=== PATIENT | male | born 1955 | race Caucasian/White ===

== ENCOUNTER 2019-11-26 08:19 | Emergency (ER) | payer BC, SELFPAY ==
[2019-11-26 08:29] VITALS: BP 163/118; PULSE 81; RESP 16; TEMP 36.4; O2SAT 96
--- NOTE | 2019-11-26 08:38 | CTR_ITS ---
PROCEDURE INFORMATION: Exam: CT Angiography Head With Contrast Exam date and time: 11/26/2019 9:12 AM Age: 64 years old Clinical indication: Double vision in right eye; Dizzy. TECHNIQUE: Imaging protocol: Computed tomography angiography of the head with intravenous contrast. 3D rendering: MIP and/or 3D reconstructed images were created by the technologist. Radiation optimization: All CT scans at this facility use at least one of these dose optimization techniques: automated exposure control; mA and/or kV adjustment per patient size (includes targeted exams where dose is matched to clinical indication); or iterative reconstruction. Contrast material: OMNI 350; Contrast volume: 95 ml; Contrast route: LT AC; COMPARISON: CT HEAD 11/26/2019 9:13 AM RADIATION DOSE METRICS: Total DLP: 3004.36 mGy-cm FINDINGS: Anterior cerebral arteries: No occlusion or significant stenosis. No aneurysm. Right internal carotid artery: Intracranial segment is patent with no significant stenosis or occlusion. No aneurysm. The ophthalmic artery is patent. Right middle cerebral artery: No occlusion or significant stenosis. No aneurysm. Right posterior cerebral artery: Small caliber P1 segment. No occlusion or significant stenosis otherwise. Large caliber patent posterior communicating artery. No aneurysm. Right vertebral artery: No occlusion or significant stenosis. No aneurysm. Left internal carotid artery: Intracranial segment is patent with no significant stenosis or occlusion. No aneurysm. The ophthalmic artery is patent. Left middle cerebral artery: No occlusion or significant stenosis. No aneurysm. Left posterior cerebral artery: Small caliber P1 segment. No occlusion or significant stenosis otherwise. Large caliber patent posterior communicating artery. No aneurysm. Left vertebral artery: No occlusion or significant stenosis. No aneurysm. Basilar artery: No occlusion or significant stenosis. No aneurysm. IMPRESSION: No large vessel stenosis or occlusion. PROCEDURE INFORMATION: Exam: CT Angiography Neck With Contrast Exam date and time: 11/26/2019 9:12 AM Age: 64 years old Clinical indication: Double vision in right eye; Dizzy. TECHNIQUE: Imaging protocol: Computed tomography angiography of the neck with intravenous contrast. 3D rendering: MIP and/or 3D reconstructed images were created by the technologist. Radiation optimization: All CT scans at this facility use at least one of these dose optimization techniques: automated exposure control; mA and/or kV adjustment per patient size (includes targeted exams where dose is matched to clinical indication); or iterative reconstruction. Contrast material: OMNI 350; Contrast volume: 95 ml; Contrast route: LT AC; COMPARISON: No relevant prior studies available. RADIATION DOSE METRICS: Total DLP: 3004.36 mGy-cm FINDINGS: Right common carotid artery: No stenosis. No dissection or occlusion. Right internal carotid artery: No stenosis of the extracranial segment. No dissection or occlusion. Right external carotid artery: No occlusion or stenosis of the origin. Right vertebral artery: No stenosis. No dissection or occlusion. Left common carotid artery: No stenosis. No dissection or occlusion. Left internal carotid artery: No stenosis of the extracranial segment. No dissection or occlusion. Left external carotid artery: No occlusion or stenosis of the origin. Left vertebral artery: No stenosis. No dissection or occlusion. Bones/joints: Mild multilevel degenerative changes in the cervical spine. Soft tissues: No acute soft tissue abnormality. Lungs: Bilateral centrilobular and paraseptal emphysema. There is an azygos fissure, an anatomic variant. CT/CT angio headneck* [id number] IMPRESSION: No stenosis, occlusion or dissection. REFERENCES: NASCET CRITERIA. The degree of internal carotid artery stenosis is based on NASCET criteria. Normal is no stenosis. Mild is less than 50% stenosis. Moderate is 50-69% stenosis. Severe is 70% to 99% stenosis. Total occlusion is no detectable patent lumen. Radiation Dose CTDIVOL = (mGy): DLP = 3004.36~3004.36 (mGy-cm)
--- NOTE | 2019-11-26 08:38 | CTR_ITS ---
PROCEDURE INFORMATION: Exam: CT Head Without Contrast Exam date and time: 11/26/2019 9:20 AM Age: 64 years old Clinical indication: Double vision in right eye; Dizzy. TECHNIQUE: Imaging protocol: Computed tomography of the head without contrast. Radiation optimization: All CT scans at this facility use at least one of these dose optimization techniques: automated exposure control; mA and/or kV adjustment per patient size (includes targeted exams where dose is matched to clinical indication); or iterative reconstruction. COMPARISON: No relevant prior studies available. RADIATION DOSE METRICS: Total DLP: 854.58 mGy-cm FINDINGS: Brain: No acute brain parenchymal abnormality. No intracranial hemorrhage. No extraaxial fluid collections. Ventricles: No hydrocephalus. Bones/joints: No calvarial fracture. Sinuses: There is multifocal mucoperiosteal thickening, but no fluid in the visualized paranasal sinuses. Mastoid air cells: The visualized mastoid air cells are aerated. Soft tissues: No acute soft tissue abnormality. CT/CT head wo con* [id number] IMPRESSION: No acute intracranial abnormality. Radiation Dose CTDIVOL = (mGy): DLP = 854.58 (mGy-cm)
--- NOTE | 2019-11-26 08:45 | ED_ITS ---
HPI - General Adult General: Chief complaint: Eye Problems Stated complaint: DIZZY VISION PROBLEMS Time Seen by Provider: 11/26/19 08:31 History of Present Illness: HPI narrative: Patient states that yesterday he was bent over a sink or counter and had sudden onset of severe blurry vision and dizziness. Symptoms have continued until this time. Onset (ago): day(s) (1) Location: head and eyes Severity: severe Relieving factors: none Exacerbating factors: none Associated symptoms: Reports nausea Treatments prior to arrival: none Review of Systems General: Reports: 10 or more systems reviewed and unremarkable except in HPI and below GI: Reports: nausea PFSH ED PFSH: Social History Smoking and tobacco status: current every day smoker Physical Exam Const: COMMON NORMALS: patient oriented x3 and alert HENMT: COMMON NORMALS: normocephalic, atraumatic, external ears normal and Normal external nose present HEAD & SCALP: normocephalic and atraumatic FACE & SINUS: normal facial exam NOSE: Normal external nose present EXTERNAL EAR: Yes external ears normal MOUTH: Normal oral and palatal mucosa present Neck/C-Spine: COMMON NORMALS: full ROM, no lymphadenopathy, no meningeal signs, no JVD and No carotid bruits Resp: COMMON NORMALS: normal respiratory effort, No retractions, No use of accessory muscles and clear to auscultation bilaterally AUSCULTATION: clear to auscultation bilaterally Cardio: COMMON NORMALS: no JVD, regular rate and regular rhythm RATE: regular rate RHYTHM: regular rhythm GI: COMMON NORMALS: Normal to inspection, nondistended, normoactive bowel sounds present, Soft to palpation, non-tender, No hepatosplenomegaly present, no masses and no bruits PALPATION: Yes Soft to palpation and Yes No hepatosplenomegaly present Extremity: COMMON NORMALS: normal to inspection, full ROM, capillary refill normal, no joint enlargement, no clubbing, cyanosis or edema, no calf tenderness and no pedal edema Neuro: COMMON NORMALS: patient oriented x3, moves all extremities, no focal motor deficits and no sensory deficits noted SENSORIUM/ORIENTATION: Yes alert MENINGEAL SIGNS: Yes no meningeal signs COORDINATION/BALANCE: [id number] test normal and fheo-gs-jyiz test normal GAIT: Yes Unable to assess gait COORDINATION: lqfbct-of-podi test normal and amkj-mz-pdnc test normal Psych: COMMON NORMALS: mental status grossly normal, Normal thought process present, cooperative, normal affect, speech normal and activity/motor behavior normal SPEECH: Yes normal speech THOUGHT PROCESS: Normal thought process present Skin: COMMON NORMALS: no rashes or lesions noted, turgor normal, no jaundice and no mottling GENERAL SKIN EXAM: no rashes or lesions noted and turgor normal Course Vital Signs: Vital signs: Vital Signs Temperature 97.6 F 11/26/19 08:29 Pulse Rate 81 11/26/19 08:29 Respiratory Rate 16 11/26/19 08:29 Blood Pressure 163/118 11/26/19 08:29 Pulse Oximetry 96 11/26/19 08:29 [facility] - General Adult Lab Data: Labs: Lab Results 11/26/19 11/26/19 11/26/19 Range/Units 08:48 08:48 08:48 WBC 10.2 H (4.0-10.0) 10^3/ uL RBC 4.83 (4.1-5.3) 10^6/u L Hgb 15.1 (11.7-16.6) g/dL Hct 46.0 (42.0-52.0) % MCV 95.2 H (80-94) fL MCH 31.3 (28.0-34.0) pg MCHC 32.8 (30.0-36.0) g/dL RDW 13.0 (12.1-15.1) % Plt Count 245 (130-400) 10^3/c mm MPV 9.5 (7.4-10.4) fL Neut % (Auto) 76.3 % Lymph % (Auto) 16.1 % Russell % (Auto) 5.5 % Eos % (Auto) 1.4 % Baso % (Auto) 0.4 % Neut # (Auto) 7.8 H (1.8-7.7) 10^3/u L Lymph # (Auto) 1.7 (0.8-4.8) 10^3/u L Russell # (Auto) 0.6 (0.2-0.9) 10^3/u L Eos # (Auto) 0.1 (0.0-0.8) 10^3/u L Baso # (Auto) 0.0 (0.0-0.1) 10^3/u L Nucleated RBC % (a uto) 0 % Nucleated RBCs # 0.0 /100WBC D-Dimer 1.14 H (0-0.59) ug/mIFE U Sodium 138 (136-145) mmol/L Potassium 4.4 (3.5-5.1) mmol/L Chloride 105 (98-107) mmol/L Carbon Dioxide 25 (22-29) mmol/L Anion Gap 12.4 (5-19) BUN 13 (8-23) mg/dL Creatinine 0.8 (0.7-1.2) mg/dL GFR Calculation 97.0 (90-130) mL/min Glucose 113 (65-115) mg/dL Calculated Osmolal ity 283 L (285-295) mOsm/k g Calcium 9.5 (8.5-10.5) mg/dL Total Bilirubin 0.4 (0.15-1.2) mg/dL AST 14 (0-40) U/L ALT 9 (0-41) U/L Alkaline Phosphata se 51 (40-130) IU/L Total Protein 7.3 (6.6-8.7) g/dL Albumin 4.1 (3.5-5.2) g/dL Globulin 3.2 (1.3-4.6) g/dL Discharge Plan Discharge Patient Disposition: Home, Self-Care Clinical Impression: Binocular vision disorder with diplopia Condition: Stable Prescriptions: No Action No Known Home Medications RF: 0 Discharge Orders: Discharge Order (Routine); Ordered 11/26/19 Ordered By: Kaleb Tan Referrals: Earnest Manuel MD [Physician] - 1-3 days Coding Level of Care Code ED Braille Duplicating Machine Operator for Chg Fwd Exam Comprehensive
[2019-11-26 08:55] LABS: Basophils % 0.4 %; Eosinophils # 0.1 10^3/uL (0.0-0.8); Eosinophils % 1.4 %; Hemoglobin 15.1 g/dL (11.7-16.6); Lymphocytes # 1.7 10^3/uL (0.8-4.8); Lymphocytes % 16.1 %; Mean Corpuscular HGB Conc 32.8 g/dL (30.0-36.0); Mean Corpuscular Hemoglobin 31.3 pg (28.0-34.0); Mean Corpuscular Volume 95.2 fL (80-94); Mean Platelet Volume 9.5 fL (7.4-10.4); Monocytes # 0.6 10^3/uL (0.2-0.9); Monocytes % 5.5 %; Neutrophils # 7.8 10^3/uL (1.8-7.7); Neutrophils % 76.3 %; Nucleated Red Blood Cells % 0 %; Platelet Count 245 10^3/cmm (130-400); Red Blood Count 4.83 10^6/uL (4.1-5.3); White Blood Count 10.2 10^3/uL (4.0-10.0)
[2019-11-26 09:05] LABS: D Dimer 1.14 ug/mIFEU (0-0.59)
[2019-11-26 09:11] LABS: Alanine Aminotransferase 9 U/L (0-41); Albumin Level 4.1 g/dL (3.5-5.2); Alkaline Phosphatase 51 IU/L (40-130); Anion Gap 12.4 (5-19); Aspartate Amino Transferase 14 U/L (0-40); Blood Urea Nitrogen 13 mg/dL (8-23); Calcium 9.5 mg/dL (8.5-10.5); Carbon Dioxide 25 mmol/L (22-29); Chloride 105 mmol/L (98-107); Globulin 3.2 g/dL (1.3-4.6); Glucose 113 mg/dL (65-115); Osmolality Calculated 283 mOsm/kg (285-295); Potassium 4.4 mmol/L (3.5-5.1); Sodium 138 mmol/L (136-145); Total Bilirubin 0.4 mg/dL (0.15-1.2); Total Protein 7.3 g/dL (6.6-8.7)
[2019-11-26] MEDS: iohexol 350 mg/mL 100 mL Btl 95 ML IV (09:22)
[2019-11-26 10:55] VITALS: BP 149/93; PULSE 77; RESP 16; O2SAT 96
== END 2019-11-26 10:55 | disposition home or self-care (01) ==
PROVIDERS: Emergency Provider Family Medicine
DX: H53.2 Diplopia (principal); F17.210 Nicotine dependence, cigarettes, uncomplicated
CPT/HCPCS: 12345; 36415; 70450; 70496; 70498; 80053; 85025; 85378; 99281; 99283; Q9967

== ENCOUNTER 2024-02-20 12:29 | Emergency (ER) | payer MEDICARE, SELFPAY ==
[2024-02-20] VITALS (19 sets, daily range): BP systolic 152–223; BP diastolic 91–137; PULSE 69–108; RESP 8–22; TEMP 36.5; O2SAT 85–99; BMI 24.4
--- NOTE | 2024-02-20 13:01 | CTR_ITS ---
PROCEDURE INFORMATION: Exam: CT Abdomen And Pelvis Without Contrast Exam date and time: 02/20/2024 1:13 PM Age: 68 years old Clinical indication: Abdominal pain; Flank; Left; Additional info: L flank pain TECHNIQUE: Imaging protocol: Computed tomography of the abdomen and pelvis without contrast. Radiation optimization: All CT scans at this facility use at least one of these dose optimization techniques: automated exposure control; mA and/or kV adjustment per patient size (includes targeted exams where dose is matched to clinical indication); or iterative reconstruction. COMPARISON: No relevant prior studies available. RADIATION DOSE METRICS: Total DLP (mGy-cm): 502.37 FINDINGS: Lungs: Lung bases are clear. No pleural effusion. Liver: Normal. No mass. Gallbladder and biliary ducts: Normal. No calcified stones. No ductal dilation. Pancreas: Normal. No ductal dilation. Spleen: Normal. No splenomegaly. Adrenal glands: Normal. No mass. Kidneys and ureters: A 3 cm cyst involves the right kidney. A 1.5 cm complex cyst or nodule arises from the superior pole of the left kidney. A 1 cm hemorrhagic cyst involving the midpole region of the left kidney. Stomach and bowel: Multiple diverticula involve the sigmoid colon. There is no sign of diverticulitis. Appendix: No evidence of appendicitis. Intraperitoneal space: Unremarkable. No free air. No significant fluid collection. Vasculature: There is a 4.7 cm aneurysm involving the infrarenal abdominal aorta. Lymph nodes: Unremarkable. No enlarged lymph nodes. Urinary bladder: Unremarkable as visualized. Reproductive: The prostate gland is abnormally enlarged. Bones/joints: Unremarkable. No acute fracture. Soft tissues: Unremarkable. CT/CT kidney stone [id number] IMPRESSION: 1. 4.7 cm abdominal aortic aneurysm 2. Complex cyst or nodule left kidney with bilateral renal cysts. Further workup with ultrasound, MRI or contrasted CT needed. 3. Prostate enlargement 4. Sigmoid diverticulosis COMMENTS: Consistent with the [employer] [employer]'s Incidental Findings Committee white paper (J Am Addie Radiol 2018): Any incidental renal lesion less than 1 cm or classified as too small to characterize, or any incidental cystic renal lesion characterized as simple-appearing, is likely benign. No follow-up imaging is recommended for these lesions per consensus recommendations based on imaging criteria.
--- NOTE | 2024-02-20 13:02 | ED_ITS ---
HPI - Back Pain/Injury 2 General: Chief Complaint: Back Pain/Injury Stated Complaint: Lower back pain Time Seen by Provider: 02/20/24 12:52 Source: patient Mode of arrival: ambulatory Limitations: no limitations History of Present Illness: 68-year-old male states that he has left lower back pain that started suddenly at 130 states pain is very sharp in nature he has been diaphoretic he states that nothing makes the pain worse no pain with palpation denies any dysuria denies any vomiting diarrhea. Associated symptoms: Deny abdominal pain, chills, fever(s), nausea or vomiting Related Data Home Medications Medication Instructions Recorded Confirmed No Known Home Medications 11/26/19 11/26/19 Allergies Allergy/AdvReac Type Severity Reaction Status Date / Time No Known Allergies Allergy Unverified 11/26/19 08:55 Review of Systems 2 Const: Denies: fever(s), chills, body aches or change in appetite ENMT: Denies: throat pain or dental pain Card: Denies: chest pain Resp: Denies: dyspnea GI: Denies: abdominal pain, nausea, vomiting or diarrhea : Reports: flank pain Musc: Denies: neck pain or back pain Skin/Breast: Denies: rash Neuro: Denies: headache(s) PFSH ED 2 PFSH: Social History Smoking and tobacco/nicotine status: current every day tobacco/nicotine user Physical Exam 2 Const: COMMON NORMALS: patient oriented x3 HENMT: COMMON NORMALS: normocephalic and atraumatic HEAD & SCALP: n ormocephalic and atraumatic Eye: COMMON NORMALS: Equal, round and reactive pupils present and EOMs intact bilaterally PUPIL: Yes Equal, round and reactive pupils present Neck/C-Spine: COMMON NORMALS: full ROM and supple Chest: COMMONS NORMALS: normal inspection of the chest and normal palpation of entire chest wall Resp: COMMON NORMALS: normal respiratory effort, No retractions, No use of accessory muscles and clear to auscultation bilaterally AUSCULTATION: clear to auscultation bilaterally Cardio: COMMON NORMALS: regular rate, regular rhythm and No murmurs present (Cardio) RATE: regular rate RHYTHM: regular rhythm GI: COMMON NORMALS: Normal to inspection, nondistended, normoactive bowel sounds present, Soft to palpation, non-tender and no masses PALPATION: Yes Soft to palpation Extremity: COMMON NORMALS: normal to inspection and full ROM Neuro: COMMON NORMALS: patient oriented x3, moves all extremities and no focal motor deficits Psych: COMMON NORMALS: mental status grossly normal, Normal thought process present and cooperative THOUGHT PROCESS: Normal thought process present Skin: COMMON NORMALS: no rashes or lesions noted and no wounds GENERAL SKIN EXAM: no rashes or lesions noted Course 2 Vital Signs: Vital signs: Vital Signs Temperature 97.7 F 02/20/24 12:37 Pulse Rate 69 02/20/24 14:15 Respiratory Rate 10 L 02/20/24 14:15 Blood Pressure 166/100 02/20/24 14:15 Pulse Oximetry 98 02/20/24 14:15 Oxygen Delivery Me thod Room Air 02/20/24 12:37 MDM - Back Pain/Injury Medical Decision Making Patient presents for his back pain he has been diaphoretic and hypertensive CT his CTA shows inflammatory abdominal aortic aneurysm without rupture. I did speak to vascular emergency recommended transfer due to his symptoms did start him on esmolol drip gave him IV pushes of blood pressure medicine as well to his blood pressure down I spoke to the ER physician will transfer patient by air ER to ER. Medical Records I reviewed the patient's medical records. Labs I reviewed the patient's lab results. 02/20/24 13:32 02/20/24 13:32 Radiology Impressions Abdomen/Pelvis CT 02/20/24 13:01 IMPRESSION: 1. 4.7 cm abdominal aortic aneurysm 2. Complex cyst or nodule left kidney with bilateral renal cysts. Further workup with ultrasound, MRI or contrasted CT needed. 3. Prostate enlargement 4. Sigmoid diverticulosis COMMENTS: Consistent with the [place] [employer]'s Incidental Findings Committee white paper (J Am Addie Radiol 2018): Any incidental renal lesion less than 1 cm or classified as too small to characterize, or any incidental cystic renal lesion characterized as simple-appearing, is likely benign. No follow-up imaging is recommended for these lesions per consensus recommendations based on imaging criteria. 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 Laboratory Results WBC 11.88 10^3/uL (3.29-11.43) H 02/20/24 13:32 RBC 4.80 10^6/uL (3.85-5.65) 02/20/24 13:32 Hgb 15.50 g/dL (11.27-16.99) 02/20/24 13:32 Hct 46.1 % (37-53) 02/20/24 13:32 MCV 96.0 fl (82-101) 02/20/24 13:32 MCH 32.3 pg (27-33) 02/20/24 13:32 MCHC 33.6 g/dL (30-55) 02/20/24 13:32 RDW 13.0 % (12.1-15.1) 02/20/24 13:32 Plt Count 269 10^3/cmm (157-399) 02/20/24 13:32 MPV 9.6 fL (7.4-10.4) 02/20/24 13:32 Neut % (Auto) 82.9 % 02/20/24 13:32 Lymph % (Auto) 11.1 % 02/20/24 13:32 [place] % (Auto) 4.5 % 02/20/24 13:32 Eos % (Auto) 0.7 % 02/20/24 13:32 Baso % (Auto) 0.3 % 02/20/24 13:32 Neut # (Auto) 9.84 10^3/uL (1.8-7.7) H 02/20/24 13:32 Lymph # (Auto) 1.3 10^3/uL (0.8-4.8) 02/20/24 13:32 [place] # (Auto) 0.5 10^3/uL (0.2-0.9) 02/20/24 13:32 Eos # (Auto) 0.1 10^3/uL (0.0-0.8) 02/20/24 13:32 Baso # (Auto) 0.0 10^3/uL (0.0-0.1) 02/20/24 13:32 Nucleated RBC % (auto) 0 % 02/20/24 13:32 Nucleated RBCs # 0.0 /100WBC 02/20/24 13:32 Sodium 139 mmol/L (136-145) 02/20/24 13:32 Potassium 4.0 mmol/L (3.5-5.1) 02/20/24 13:32 Chloride 105 mmol/L (98-107) 02/20/24 13:32 Carbon Dioxide 23 mmol/L (22-29) 02/20/24 13:32 Anion Gap 15.0 (5-19) 02/20/24 13:32 BUN 15 mg/dL (8-23) 02/20/24 13:32 Creatinine 0.8 mg/dL (0.7-1.2) 02/20/24 13:32 GFR Calculation 95.8 mL/min (90-130) 02/20/24 13:32 Glucose 133 mg/dL (65-115) H 02/20/24 13:32 Calculated Osmolality 291 mOsm/kg (285-295) 02/20/24 13:32 Calcium 8.7 mg/dL (8.5-10.5) 02/20/24 13:32 Total Bilirubin 0.7 mg/dL (0.15-1.2) 02/20/24 13:32 AST 11 U/L (0-40) 02/20/24 13:32 ALT 10 U/L (0-41) 02/20/24 13:32 Alkaline Phosphatase 64 U/L (40-130) 02/20/24 13:32 Total Protein 7.0 g/dL (6.6-8.7) 02/20/24 13:32 Albumin 4.0 g/dL (3.5-5.2) 02/20/24 13:32 Globulin 3.0 g/dL (1.3-4.6) 02/20/24 13:32 Lipase 24 U/L (13-60) 02/20/24 13:32 All radiology interpretation(s) finalized by discharge Critical Care Time 2 Critical Care Time: Critical Care Time: Yes Total Critical Care Time: 45 Attestation: The high probability of a clinically significant, sudden or life threatening deterioration of the patient's vascular system(s) required my full and direct attention, intervention and personal management. The critical care time is as shown. This time is in addition to time spent performing any reported procedures but includes the following: [x] Data and vital sign review and interpretation [x] Patient assessment, examination and intervention [x] Documentation [x] Medication orders and management Discharge Plan Discharge Patient Disposition: Xfer Short-Term Hosp Clinical Impression: Abdominal aortic aneurysm Condition: Stable Prescriptions: No Action No Known Home Medications Coding Level of Care Code ED Painter Drum for Corazon Cota
--- NOTE | 2024-02-20 13:28 | CTR_ITS ---
PROCEDURE INFORMATION: Exam: CTA Abdomen and Pelvis With Contrast Exam date and time: 02/20/2024 1:34 PM Age: 68 years old Clinical indication: Abdominal pain; Low back. TECHNIQUE: Imaging protocol: Computed tomographic angiography of the abdomen and pelvis with contrast. Exam focused on the arteries. 3D rendering (Not supervised by radiologist): MIP and/or 3D reconstructed images were created by the technologist. Radiation optimization: All CT scans at this facility use at least one of these dose optimization techniques: automated exposure control; mA and/or kV adjustment per patient size (includes targeted exams where dose is matched to clinical indication); or iterative reconstruction. Contrast material: OMNI 350; Contrast volume: 100 ml; Contrast route: INTRAVENOUS (IV); COMPARISON: CT ABDOMEN/PELVIS WITHOUT 02/20/2024 1:13 PM RADIATION DOSE METRICS: Total DLP (mGy-cm): 550.4 FINDINGS: Aorta: There is a fusiform infrarenal abdominal aortic aneurysm with a diameter of approximately 4.6 cm. There appears to be a rind of inflammatory tissue around the aneurysm, sparing the posterior wall. No rupture. Celiac trunk and mesenteric arteries: The celiac axis is patent with a mild stenosis at the origin. The SMA is widely patent. The LISA is patent but is reconstituting from the arc of [place]. Renal arteries: The right renal artery is patent with a mild stenosis at the origin. The left renal artery is patent with no stenosis. Right iliac arteries: There is ectasia of the right common iliac artery with a diameter of approximately 1.7 cm. No internal iliac artery aneurysm. No stenosis or occlusion. Left iliac arteries: There is ectasia of the left common iliac artery with a diameter proximally 1.6 cm. No internal iliac artery aneurysm. No stenosis or occlusion. Liver: Multiple calcified granulomas in a nonenlarged liver. Gallbladder and biliary ducts: No calcified gallstones, gallbladder wall thickening, or pericholecystic inflammation. No biliary ductal dilation. Pancreas: No pancreatic mass. No peripancreatic inflammation. No pancreatic ductal dilation. Spleen: Multiple calcified granulomas in a nonenlarged spleen. Adrenal glands: No adrenal mass. Kidneys and ureters: No hydronephrosis. No nephrolithiasis. Dominant simple appearing 3 cm right renal cyst. There is a 1.5 cm simple cyst in the left kidney. There is a 1.0 cm exophytic low-attenuation lesion in the left kidney which may be due to complicated cyst. This lesion does not appear to enhance when compared to the prior noncontrast exam. Stomach and bowel: No bowel obstruction. There is diverticulosis, most prominently in the sigmoid colon and at the splenic flexure, without evidence of diverticulitis. Appendix: The appendix has a normal caliber. There is gas in the lumen. No periappendiceal inflammation. Intraperitoneal space: No ascites or pneumoperitoneum. Lymph nodes: No enlarged lymph nodes. Urinary bladder: No urinary bladder calculus or wall thickening. Reproductive: Prominent prostate. Bilateral vas deferens calcification which can be associated with diabetes mellitus. Bones/joints: Multilevel degenerative changes in the lumbar spine. Mild bilateral hip joint degeneration. Soft tissues: No acute soft tissue abnormality. 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
[2024-02-20] MEDS: iohexol 350 mg/mL 500 mL Btl (per mL) IV (13:40)
[2024-02-20 13:44] LABS: Basophils % 0.3 %; Eosinophils # 0.1 10^3/uL (0.0-0.8); Eosinophils % 0.7 %; Hematocrit 46.1 % (37-53); Lymphocytes # 1.3 10^3/uL (0.8-4.8); Lymphocytes % 11.1 %; Mean Corpuscular HGB Conc 33.6 g/dL (30-55); Mean Corpuscular Hemoglobin 32.3 pg (27-33); Mean Platelet Volume 9.6 fL (7.4-10.4); Monocytes # 0.5 10^3/uL (0.2-0.9); Monocytes % 4.5 %; Neutrophils # 9.84 10^3/uL (1.8-7.7); Neutrophils % 82.9 %; Nucleated Red Blood Cells % 0 %; Platelet Count 269 10^3/cmm (157-399); White Blood Count 11.88 10^3/uL (3.29-11.43)
[2024-02-20] MEDS: HYDROmorphone 1 mg/mL INJ 1 mL IVP (13:44)
[2024-02-20] MEDS: ondansetron 2 mg/ML SDV 2 mL 4 MG IVP (13:44)
[2024-02-20] MEDS: labetalol 5 mg/mL SDV 20mL 20 MG IVP (13:44)
[2024-02-20 14:02] LABS: Alanine Aminotransferase 10 U/L (0-41); Alkaline Phosphatase 64 U/L (40-130); Aspartate Amino Transferase 11 U/L (0-40); Blood Urea Nitrogen 15 mg/dL (8-23); Calcium 8.7 mg/dL (8.5-10.5); Carbon Dioxide 23 mmol/L (22-29); Chloride 105 mmol/L (98-107); Creatinine Clr Calc Pharmacy 100.4675; Glomerular Filtration Rate 95.8 mL/min (90-130); Glucose 133 mg/dL (65-115); Lipase 24 U/L (13-60); Osmolality Calculated 291 mOsm/kg (285-295); Sodium 139 mmol/L (136-145); Total Bilirubin 0.7 mg/dL (0.15-1.2)
--- NOTE | 2024-02-20 14:03 | ECG_ITS ---
[facility] Test Date: 2024-02-20 Pat Name: Jorge Grigsby Department: Room: Gender: Male Color Repairer: : 1955 Requested By: Winnie Morgan Order Number: [id number] Krystina MD: Scot Calles M.D. Measurements Intervals [place] Rate: 85 P: 0 SC: 0 QRS: 76 QRSD: 98 T: 57 QT: 407 QTc: 485 Interpretive Statements ATRIAL FIBRILLATION No previous ECG available for comparison Electronically Signed On 02-20-2024 14:27:58 CDT by Scot Calles M.D. [email or web address]
[2024-02-20] MEDS: esmolol drip 2,500 MG/250 ML PREMIX 25.18 MG IV (14:25)
[2024-02-20] MEDS: hyDRALAzine 20 mg/mL INJ 1 mL 10 MG IVP (14:30)
[2024-02-20 15:03] LABS: Charge for UA Resulting for Rev
[2024-02-20 15:06] LABS: Bilirubin Urine Negative (Negative); Blood Urine Negative (Negative); Glucose Urine UA Negative (Normal); Ketones Urine Negative (Negative); Leukocyte Esterase Urine Negative (Negative); Nitrate Urine Negative (Negative); Protein Urine Trace (Negative); Urine Appearance Clear (CLEAR); Urine Color Yellow (Yellow); pH Urine 7.5 (5-7)
[2024-02-20 15:08] LABS: Bacteria Urine None Seen /hpf; RBC Urine 0-2 /hpf (0-2); Squamous Epithelial Cell Urine 0-5 /hpf (0-5); WBC Urine 0-5 /hpf (0-5)
[2024-02-20 15:10] LABS: Specific Gravity, Urine 1.044 (1.005-1.030)
== END 2024-02-20 15:22 | disposition short-term general hospital (02) ==
PROVIDERS: Emergency Provider Emergency Medicine
DX: I71.40 Abdominal aortic aneurysm, without rupture, unspecified (principal); Z72.0 Tobacco use
CPT/HCPCS: 74174; 74176; 80053; 81003; 81015; 83690; 85025; 86850; 86900; 93005; 96365; 96375; 99285; 99291; 99292; J0360; J1170; J2405; J3490

== ENCOUNTER 2024-04-20 09:32 | Outpatient (CLI) | payer MEDICARE, SELFPAY ==
--- NOTE | 2024-04-20 09:35 | CT_ITS ---
WS: [id number] LDCT LUNG CANCER SCREENING HISTORY: NICOTINE DEPENDENCE TECHNIQUE: Axial imaging performed from the apices to 1 cm below the costophrenic angles. Coronal and sagittal reformats are submitted with axial MIP series. All CT scans at [facility] use at least one of these dose optimization techniques: automated exposure control; mA and/or kV adjustment per patient size (includes targeted exams where dose is matched to clinical indication); or iterativ e reconstruction. DLP: 83.08 mGy.cm DIvol: Mean CTDIvol: 1.40 (mGy) COMPARISON: None available. Diagnostic quality: Satisfactory Lungs: Moderate pulmonary hyperexpansion. 4 mm noncalcified nodule RIGHT upper lobe. No additional pu lmonary nodule or mass. No endobronchial lesions. Heart: Normal size heart. No pericardial effusion.. Other findings: Mild atherosclerosis aorta. Normal size pulmonary artery. No adenopathy. Small hiatal hernia. Normal adrenal glands. Partially visualized abdominal aortic stent graft. CT/CT lung screening [id number] IMPRESSION: LUNG-RADS: 3-Probably Benign FOLLOW UP: 6 Month LDCT OTHER FINDINGS (S MODIFIER): None.
== END 2024-04-20 09:33 | disposition home or self-care (01) ==
LOC: RAD 09:33
PROVIDERS: PCP Family Medicine; Visit Provider Family Medicine
DX: F17.210 Nicotine dependence, cigarettes, uncomplicated (principal); Z12.2 Encounter for screening for malignant neoplasm of respiratory organs; R91.1 Solitary pulmonary nodule; J98.4 Other disorders of lung; K44.9 Diaphragmatic hernia without obstruction or gangrene
CPT/HCPCS: 71271

== ENCOUNTER 2024-08-28 10:32 | Outpatient (CLI) | payer MEDICARE, SELFPAY ==
--- NOTE | 2024-08-28 10:37 | XRR_ITS ---
PROCEDURE INFORMATION: Exam: XR Left Shoulder Exam date and time: 08/28/2024 10:43 AM Age: 69 years old Clinical indication: Pain; Shoulder; Left; Additional info: Pain in L shoulder TECHNIQUE: Imaging protocol: Radiologic exam of the left shoulder. Views: 2 or more views. COMPARISON: CT lung screening [id number] 04/20/2024 9:47 AM FINDINGS: Bones/joints: Mild acromioclavicular and glenohumeral spurring. No fracture or dislocation. No acute osseous, joint, or soft tissue abnormality. Soft tissues: Normal. XR/XR shoulder LT min 2V* [id number] IMPRESSION: Mild degenerative changes.
== END 2024-08-28 10:33 | disposition home or self-care (01) ==
LOC: RAD 10:35
PROVIDERS: PCP Family Medicine; Visit Provider Family Medicine
DX: M25.512 Pain in left shoulder (principal); M25.712 Osteophyte, left shoulder
CPT/HCPCS: 73030

== ENCOUNTER 2024-11-28 06:44 | Outpatient (CLI) | payer MEDICARE, SELFPAY ==
--- NOTE | 2024-11-28 07:05 | CT_ITS ---
WS: [id number] CT chest wo con [id number] HISTORY: LUNG NODULE TECHNIQUE: Axial imaging performed through the thorax. Coronal and sagittal reformats are submitted. All CT scans at [facility] use at least one of these dose optimization techniques: automated exposure control; mA and/or kV adjustment per patient size (includes targeted exams where dose is matched to clinical indication); or iterative reconstruction. CONTRAST: None DLP: 421.72 mGy.cm COMPARISON: 04/20/2024 Lungs and central airway: Moderate pulmonary hyperexpansion. No increase in size of the 4 mm RIGHT upper lobe pulmonary nodule that has been previously described. No new or enlarging pulmonary nodules. Fat-containing RIGHT diaphragmatic hernia. Pleura: Normal. No pleural effusion. Heart and pericardium: Normal size heart with no pericardial effusion. Mediastinum and quique: RIGHT hilar calcified lymph nodes. No pathologically enlarged lymph nodes identified. Vessels: Mildly ectatic thoracic aorta with atherosclerotic plaque. Normal size pulmonary artery. Chest wall and lower neck: No soft tissue masses. Upper abdomen: Small hiatal hernia. Hepatic and splenic granulomata. Visualized gallbladder is negative although incompletely included. Partially visualized aortic stent graft repair. No adrenal mass. Partially visualized low-attenuation mass in the duodenum measures 8 mm. Favor this is probably a small duodenal lipoma. Osseous structures: No destructive process. CT/CT chest wo con [id number] IMPRESSION: 1. No interval change in the RIGHT upper lobe noncalcified pulmonary nodule si nce 04/20/2024. Recommend additional 12-month chest CT follow-up. 2. Chronic emphysema. 3. No pathologically enlarged lymph nodes. 4. Hepatic and splenic granulomata. 5. Duodenal lipoma.
== END 2024-11-28 06:45 | disposition home or self-care (01) ==
PROVIDERS: PCP Family Medicine; Visit Provider Family Medicine
DX: R91.8 Other nonspecific abnormal finding of lung field (principal); J43.8 Other emphysema; K75.3 Granulomatous hepatitis, not elsewhere classified; D73.89 Other diseases of spleen; K44.9 Diaphragmatic hernia without obstruction or gangrene; R59.0 Localized enlarged lymph nodes; I77.810 Thoracic aortic ectasia; I70.0 Atherosclerosis of aorta; Z98.890 Other specified postprocedural states; R93.89 Abnormal findings on diagnostic imaging of other specified body structures
CPT/HCPCS: 71250

== ENCOUNTER 2025-06-12 11:39 | Outpatient (CLI) | payer MEDICARE, SELFPAY ==
[2025-06-12 12:19] VITALS: PULSE 90; RESP 18; O2SAT 97
== END 2025-06-12 11:40 | disposition home or self-care (01) ==
PROVIDERS: PCP Family Medicine; Visit Provider Family Medicine
DX: R06.09 Other forms of dyspnea (principal); J98.8 Other specified respiratory disorders
CPT/HCPCS: 94060; 94726; 94729; J7613